=== PATIENT | male | born 1980 | race Caucasian/White ===

== ENCOUNTER 2017-01-30 10:30 | Emergency (ER) | payer BC ==
[2017-01-30] MEDS ORDERED: ONDANSETRON 4 MG TAB.RAPDIS PO ONE (12:37)
[2017-01-30] MEDS ORDERED: KETOROLAC TROMETHAMINE 60 MG/2 ML VIAL IM ONE ×2 (12:37→12:51)
[2017-01-30] MEDS ORDERED: diphenhydrAMINE HCL 50 MG/ML VIAL IM ONE (12:37)
--- NOTE | 2017-01-30 12:47 | ERNOTE ---
Integumentary HPI - Narrative Date of Service: 01/30/17 - General Presenting Symptoms: rash Time Seen by Provider: 01/30/17 12:06 Source: patient Exam Limitations: no limitations - Immun/Allergies/Home Medications Allergies/Adverse Reactions: Allergies Allergy/AdvReac Type Severity Reaction Status Date / Time No Known Allergies Allergy Verified 01/30/17 11:04 Home Medications: HOME MEDICATIONS valACYclovir HCL [Valtrex] 1,000 mg PO TID #21 tab 01/30/17 [Last Taken Unknown] - History of Present Illness Narrative: Pt. comes in with rash across his R eye and extends to the posterior scalp and down the middle of his head. Pt. states that this started four days ago with a headache , fatigue, and malaise, and continued to develop the rash and fever, and ahs also had intermittent NVD that he has for 12 hours then resolves for 24 hours then worsens again. Location: Reports: scalp Quality: Reports: painful Severity: mild Exposure: Reports: no cause identified Modifying Factors - (Improves): Reports: nothing Modifying Factors - (Worsens): Reports: nothing Associated Symptoms: Reports: blisters, rash Review of Systems - Review of Systems Constitutional: Present: fever, fatigue, malaise. Absent: recent illness EYE: Present: eye pain - R. Absent: blurred vision, double vision, vision changes ENT: Present: no symptoms reported. Absent: nose pain, nose congestion, nasal drainage, sore throat, throat swelling Respiratory: Present: no symptoms reported. Absent: shortness of breath, cough , wheezing Cardiology: Present: no symptoms reported. Absent: chest pain, palpitations, edema Gastrointestinal/Abdominal: Present: nausea, vomiting, diarrhea. Absent: abdominal pain Genitourinary: Present: no symptoms reported Musculoskeletal: Present: no symptoms reported. Absent: back pain, joint pain Skin: Present: rash. Absent: change in color, change in hair/nails Neurological: Present: headache. Absent: dizziness/light-headedness, numbness, tingling Endocrine: Present: no symptoms reported Hematologic/Lymphatic: Present: no symptoms reported All Other Systems: All systems neg except as marked - Patient's Past Medical History Patient History - Medical: No pertinent hx Patient History - Cardiac/Respiratory: No pertinent hx Patient History - Cancer: No Hx of Cancer Patient History - Surgical Procedures: No surgical history - Social History Living Situations: home Smoking Status: Never smoker Do you dip or chew tobacco: No Physical Exam - Physical Exam General Appearance: Present: wd/wn, alert, no apparent distress Head Exam: Present: no evidence of injury, other - rash from midline scal to post parietal scalp on R side of face and head Eye Exam: Normal inspection: left, PERRL: bilateral, EOMI: bilateral, Sclera injection: right, Other: right - conjunctival hemorrhage Ears, Nose, Throat: Present: normal ENT inspection, normal pharynx Neck: Present: normal inspection, nontender, supple, full range of motion. 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 Absent: pallor ED Progress - Date and Time Seen: Date and Time: 01/30/17 12:[address] Bledsoe and he recommends holdin off on steroids but calling to [facility] pt. in with him later today or early tomorrow AM. - Results and Orders Patient's Lab Results:: I have reviewed the patient's lab results. - Vital Signs Patient's Vital Signs:: I have reviewed the patient's vital signs. Vital Signs: Vital Signs 01/30/17 10:58 Temperature 36.7 C Pulse Rate 67 Respiratory 16 Rate Blood Pressure 147/82 O2 Sat by Pulse 100 Oximetry - Progress/Reassessment Chief Complaint: Rash Progress:: Unchanged Departure Clinical Impression: Ophthalmic herpes zoster infection - Departure Disposition: Home self-care Condition: Good Instructions: Shingles, [id number] Additional Instructions: Please follow up with Dr Bledsoe as scheduled Referrals: Guanaco Rogers MD [Primary Care Provider] - Prescriptions: valACYclovir HCL [Valtrex] 1,000 mg PO TID #21 tab
[2017-01-30 12:51] LABS: Hemoglobin 14.3 gm/dL (13.5-18.0); Mean Cell Volume 89.2 fl (78-100); Mean Corpuscular Hgb Conc 32.5 g/dl (32-36); Mean Platelet Volume 9.7 fl (6.0-9.5); Neutrophil # 6.6 K/mm3 (1.3-6.0); Neutrophil % 74.8 % (42-75.0); Platelet Count 243 K/mm3 (150-450); Red Blood Count 4.93 M/mm3 (4.7-6.0); White Blood Count 8.9 K/mm3 (4.0-10.5)
[2017-01-30] MEDS ORDERED: diphenhydrAMINE HCL 50 MG/ML VIAL ONE (12:51)
[2017-01-30] MEDS ORDERED: ONDANSETRON 4 MG TAB.RAPDIS ONE (12:51)
[2017-01-30 13:04] LABS: Albumin * 3.8 gm/dl (3.4-5.0); Anion Gap 15.2 mmol/L (6.8-13.8); BUN/Creatinine Ratio 18.9 (9.0-21.6); Bilirubin, Total 0.7 mg/dL (0.0-1.1); Ca. Corrected For Albumin 9.4 mg/dL (8.4-10.2); Calcium * 9.6 mg/dL (7.9-10.9); Carbon Dioxide 25.1 mmol/L (24-32.6); Potassium 4.3 mmol/L (3.4-4.6); Total Protein 8.3 gm/dL (6.2-8.2)
[2017-01-30 13:46] VITALS: BP 133/78
== END 2017-01-30 13:45 | disposition home or self-care (01) ==
LOC: ER 10:30
DX: B02.30 Zoster ocular disease, unspecified (principal)